=== PATIENT | female | born 1945 | race Caucasian/White ===

== ENCOUNTER 2020-02-26 08:47 | Outpatient (CLI) | payer MEDICARE, OTHER, SELFPAY ==
--- NOTE | 2020-02-26 09:02 | XR_ITS ---
WS: [id number] SCREENING DEXA SCAN [place]ubie CLINICAL INFORMATION: POST MENOPAUSAL COMPARISON: None. FINDINGS: The L1-L4 bone mineral density measures 1.211 g/cm2. This corresponds to a T score score of 0.3 and Z score of 1.9. Left femoral neck bone mineral density measures 0.848 g/cm2. This corresponds to a T score of -1.3 an d Z score of 0.4. Right femoral neck bone mineral density measures 0.868 g/cm2. This corresponds to a T score -1.1of an d Z score of 0.5. Mean femoral neck bone mineral density measures 0.858 g/cm2. This corresponds to a T score of -1.2 an d Z score of 0.4. XR/XR DEXA axial skeleton* [id number] IMPRESSION: Normal bone mineralization lumbar spine. Osteopenia in the femoral necks. Patient's FRAX calculated 10 year probability for major osteoporotic fracture i s 18.3 % and osteoporotic hip fracture is 3.8%.
== END 2020-02-26 08:48 | disposition home or self-care (01) ==
PROVIDERS: Family Provider Family Medicine; Visit Provider Physician Assistant
DX: Z78.0 Asymptomatic menopausal state (principal)
CPT/HCPCS: 77080

== ENCOUNTER 2020-05-02 11:16 | Outpatient (CLI) | payer MEDICARE, OTHER, SELFPAY ==
--- NOTE | 2020-05-02 11:23 | MM_ITS ---
WS: [id number] BILATERAL SCREENING MAMMOGRAM WITH BRITTNI DISPLACEMENT VIEWS. CAD PERFORMED. HISTORY: SCREENING COMPARISON: 02/09/2019, 02/03/2018 Bilateral craniocaudal and mediolateral like views are performed. Brittni displacement views in CC and MLO projection also performed. Breasts composition: There are scattered areas of fibroglandular density. Prepectoral bilateral breast implants. Capsular contraction bilaterally but greatest on the LEFT. The re are benign breast calcifications. No suspicious masses. MM/[id number] IMPRESSION: BI-RADS: 2-Benign FOLLOW-UP: 1 Year Follow-up
== END 2020-05-02 11:17 | disposition home or self-care (01) ==
LOC: RADSHAW 11:22
PROVIDERS: PCP Physician Assistant; Visit Provider Physician Assistant
DX: Z12.31 Encounter for screening mammogram for malignant neoplasm of breast (principal)
CPT/HCPCS: 77067

== ENCOUNTER 2021-09-26 10:45 | Outpatient (CLI) | payer MEDICARE, OTHER, SELFPAY ==
--- NOTE | 2021-09-26 10:51 | CT_ITS ---
WS: [id number] LDCT LUNG CANCER SCREENING TECHNIQUE: Noncontrast CT of the chest with coronal and sagittal reformatted images. CLINICAL INFORMATION: HISTORY OF TOBACCO USE COMPARISON: CT chest 5 7,018 DLP: 56.96 mGy.cm DIvol: 1.[address] scans at [facility] use at least one of these dose optimization techniques: automat ed exposure control; mA and/or kV adjustment per patient size (includes targeted exams where dose is matched to clinical indication); or iterative reconstruction. FINDINGS: Moderate chronic emphysematous changes. 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 A few calcified gr anulomas. Postoperative changes bilateral breast prosthesis. Aortic calcification. Coronary calcifica tion. No mediastinal or hilar lymphadenopathy. A few calcified mediastinal and hilar lymph nodes. No axillary lymphadenopathy. Adrenal glands are normal. Small esophageal hiatal hernia. CT/CT lung screening [id number] IMPRESSION: LUNG-RADS: 1-Negative FOLLOW UP: 12 Month: Continue annual screening with LDCT
== END 2021-09-26 10:46 | disposition home or self-care (01) ==
LOC: RAD 10:46
PROVIDERS: PCP Physician Assistant; Visit Provider Physician Assistant
DX: Z12.2 Encounter for screening for malignant neoplasm of respiratory organs (principal); Z87.891 Personal history of nicotine dependence; K44.9 Diaphragmatic hernia without obstruction or gangrene
CPT/HCPCS: 71271

== ENCOUNTER 2021-11-28 15:22 | Outpatient (CLI) | payer MEDICARE, OTHER, SELFPAY ==
--- NOTE | 2021-11-28 15:36 | MM_ITS ---
WS: [id number] BILATERAL SCREENING MAMMOGRAM WITH BRITTNI DISPLACEMENT VIEWS. CAD PERFORMED. HISTORY: SCREEN COMPARISON: 05/02/2020, 02/09/2019 and 02/03/2018 Bilateral craniocaudal and mediolateral like views are performed. Brittni displacement views in CC and MLO projection also performed. Breasts composition: There are scattered areas of fibroglandular density. Prepectoral implants are similar to the prior study. Mild distortion of the implants and partial caps ular encasement by calcification. There are a few scattered benign calcifications within each breast. MM/[id number] IMPRESSION: BI-RADS: 2-Benign FOLLOW-UP: 1 Year Follow-up
== END 2021-11-28 15:23 | disposition home or self-care (01) ==
LOC: RADSHAW 15:31
PROVIDERS: PCP Physician Assistant; Visit Provider Physician Assistant
DX: Z12.31 Encounter for screening mammogram for malignant neoplasm of breast (principal)
CPT/HCPCS: 77067

== ENCOUNTER 2023-02-06 12:02 | Outpatient (CLI) | payer MEDICARE, SELFPAY ==
--- NOTE | 2023-02-06 12:11 | MM_ITS ---
WS: [id number] BILATERAL SCREENING DIGITAL BREAST MAMMOGRAPHY WITH BRITTNI DISPLACEMENT VIEWS. CAD PERFORMED. HISTORY: SCREENING COMPARISON: 11/28/2021, 05/29/2020 Bilateral craniocaudal and mediolateral oblique views are performed with tomosynthesis and SM. Brittni displacement views in CC and MLO projection also performed. Breasts composition: There are scattered areas of fibroglandular density. Breast implants are heavily calcified with capsular contracture. No suspicious masses or calcificatio ns within either breast. MM/[place] [id number] IMPRESSION: BI-RADS: 2-Benign FOLLOW-UP: 1 Year Follow-up
== END 2023-02-06 12:03 | disposition home or self-care (01) ==
LOC: RAD 12:07
PROVIDERS: PCP Physician Assistant; Visit Provider Physician Assistant
DX: Z12.31 Encounter for screening mammogram for malignant neoplasm of breast (principal)
CPT/HCPCS: 77063; 77067

== ENCOUNTER 2023-05-01 07:40 | Outpatient (CLI) | payer MEDICARE, SELFPAY ==
--- NOTE | 2023-05-01 | ECG_ITS ---
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 Interpretive Statements NAME OF STUDY: EXERCISE SESTAMIBI STRESS TEST INDICATION: Chest Pain Baseline blood pressure of 193/78 mm Hg, heart rate of 83 beats per minute and oxygen saturation of 92%. EKG showed sinus rhythm, normal axis with poor anterior R wave progression. The patient exercised for 5 minutes 21 seconds on a standard Sean protocol. Patient attained a maximum heart rate of 135 beats per minute(94% of the maximum predicted heart rate) with a blood pressure at the peak exercise of 226/82 mm Hg oxygen saturation of 92%. The EKG at the peak exercise revealed sinus tachycardia with no significant ST-T wave changes. Patient did not have any chest pain or any significant arrhythmis with the exercise During the recovery phase, there were no new changes. Blood pressure at the end of the recovery phase was 183/63 mm Hg with a heart rate of 95 beats per minute and oxygen saturation of 92%. CONCLUSION: 1. Normal EKG response to treadmill exercise. 2. No exercise-induced chest pain or cardiac arrhythmia 3. Good exercise tolerance, attained a maximum of 7 METs. 4. Baseline hypertension with normal response to exercise. 5. Perfusion scan will be documented separately. Electronically Signed On 05-08-2023 17:23:14 CDT by Megan Sheikh M.D. [id number]
[2023-05-01 08:18] VITALS: BMI 27.4
--- NOTE | 2023-05-01 08:37 | NMCV_ITS ---
NM timmy perf SPECT r/s* [id number] Beth Peralta Age: 77 Gender: F : 1945 Exam Date: 05/01/2023 08:56 Ordering Phys: Ila Dahl Technologist: ELVIE Richardson Exam Location: [facility] Indications: CHEST PAIN STRESS TEST Please see separate stress test report in [facility] for full findings IMAGE PROTOCOL Rest/Stress 1 Exercise Day Radiopharmaceutical Dose (mCi) Administration Site Administered by Rest: Tc-99m 10.3 IV ELVIE Haines Sestamibi Stress:Tc-99m 32.6 IV ELVIE Haines Sestamibi Rest: 01-May-2023 60 Discovery 630 Stress: 01-May-2023 15 Discovery 630 Radiopharmaceutical was injected at 90 % maximum heart rate. Images obtained in supine and prone position. SPECT RESULTS Technical Quality: Excellent Raw Data Analysis: Normal Image Corrections: No attenuation or motion correction applied Summed Stress Score: 0 Summed Rest Score: 1 Summed Difference Score: 0 PERFUSION FINDINGS SPECT images demonstrate homogeneous tracer distribution throughout the myocardium. FUNCTIONAL RESULTS (calculated via Gated SPECT) Stress Image LV EF (%): 91 Stress EDV (mL):58 TID: 0.96 Stress ESV (mL):5 FUNCTIONAL FINDINGS: The left ventricle is normal in size. Transient Ischemia Dilatation of 0.96. The left ventricular ejection fraction is normal with a value of 91%. There is hyperdynamic left ventricular wall thickening. IMPRESSIONS 1. Myocardial perfusion imaging is normal. 2. Overall left ventricular systolic function is normal without regional wall motion abnormalities, LVEF=91%. 3. Good functional capacity for age. No EKG changes with exercise. Refer to separate report for details. 4. Scan indicates low risk for cardiac events. Megan Sheikh MD (Electronically Signed) Final Date: 01 May 2023 17:48 S
[2023-05-01 09:53] VITALS: BP 183/84; PULSE 82
== END 2023-05-01 07:41 | disposition home or self-care (01) ==
LOC: CDL 07:41
PROVIDERS: PCP Physician Assistant; Visit Provider Physician Assistant
DX: R07.9 Chest pain, unspecified (principal)
CPT/HCPCS: 36415; 78452; 93017; A9500

== ENCOUNTER 2023-11-08 13:11 | Outpatient (CLI) | payer MEDICARE, SELFPAY ==
--- NOTE | 2023-11-08 13:19 | XR_ITS ---
WS: [id number] DEXA (DUAL ENERGY X-RAY ABSORPTIOMETRY) Bone mineral density was performed using a LineaQuattro machine. HISTORY: POSTMENOPAUSAL COMPARISON: 02/26/2020 Lumbar spine BMD (L1-L4): 1.223 g/cm2 T score: 0.4 Z score: 1.9 Total hip BMD: Left: 0.852 g/cm2. T score: -1.2 Z score: 0.5 Right: 0.878 g/cm2. T score: -1.0 Z score: 0.7 10 year probability of a major osteoporotic fracture is 19.7%. Compared to the prior study from 02/26/2020. Lumbar spine bone mineral density has increased by 1.0%. Bilateral hips bone mineral density has increased by 0.8%. IMPRESSION: OSTEOPENIA based upon the WHO classification for females. No significant change of bone mineral density within the lumbar spine or hips since the prior study.
== END 2023-11-08 13:12 | disposition home or self-care (01) ==
LOC: RAD 13:14
PROVIDERS: PCP Physician Assistant; Visit Provider Physician Assistant
DX: Z78.0 Asymptomatic menopausal state (principal); M85.89 Other specified disorders of bone density and structure, multiple sites
CPT/HCPCS: 77080

== ENCOUNTER 2024-02-07 12:41 | Outpatient (CLI) | payer MEDICARE, SELFPAY ==
--- NOTE | 2024-02-07 12:46 | MM_ITS ---
WS: [id number] Bilateral screening 3D tomosynthesis digital mammogram, 02/07/2024 Clinical Data: SCREENING Comparison: 02/06/2023, 11/28/2021, 05/02/2020, 02/09/2019, 02/03/2018, 08/20/2008. Findings: The breast parenchymal pattern shows fibroglandular tissue. There are bilateral augmentation mammopla sty implants which are intact. No spiculated masses or clustered calcifications are seen. There are n o secondary signs of carcinoma. MM/[place] [id number] Impression: 1. Negative bilateral mammogram unchanged. 2. Recommend annual screening mammograms. BIRADS: 2-Benign FOLLOW UP: 1 Year Follow-up The CAD apple checker was used.
== END 2024-02-07 12:42 | disposition home or self-care (01) ==
LOC: RAD 12:41
PROVIDERS: PCP Physician Assistant; Visit Provider Physician Assistant
DX: Z12.31 Encounter for screening mammogram for malignant neoplasm of breast (principal)
CPT/HCPCS: 77063; 77067